=== PATIENT | male | born 1995 | race Caucasian/White ===

== ENCOUNTER 2022-02-01 11:59 | Inpatient (IN) | payer OTHER, MEDICAID, SELFPAY ==
[2022-02-01 12:01] VITALS: BP 134/89; PULSE 81; RESP 14; TEMP 36.7; O2SAT 99; BMI 22.8
--- NOTE | 2022-02-01 12:15 | EX.ED.SAOD ---
HPI History of Present Illness Chief Complaint: Substance Abuse Informant: patient Narrative Narrative: 26-year-old male presents to the emergency department states that he needs inpatient detox for opiates and crack. He states he does not use crack very often but he does use up to a gram of fentanyl per day. He denies IV drug use. He states that he has a total of 5 children and his will not let him see the children until he is sober. He states he was supposed to go to court today but wanted to come here for detox. He notes abdominal cramping diarrhea and chills. He denies any pending legal issues. He states that he is not currently working [employer] [facility] Medical History (Updated 02/01/22 @ 12:[address] Wily Fraser DO) Opiate abuse, continuous Allergy/AdvReac Type Severity Reaction Status Date / Time amoxicillin Allergy Hives Verified 02/01/22 12:01 Social History (Updated 02/01/22 @ 12:[address] Wily Fraser DO) Smoking Status: Current every day smoker substance use type: crack/cocaine and opiates ROS ROS ED Constitutional Constitutional ED: Reports chills; Denies weight loss Eyes Eyes: Denies change in vision or diplopia ENT ENT ED: Denies ear pain, rhinorrhea or sore throat Cardiovascular Cardiovascular: Denies chest pain, orthopnea, palpitations or racing heartbeat Respiratory/Chest Respiratory/Chest: Denies cough, dyspnea or orthopnea Gastrointestinal Gastrointestinal: Reports abdominal pain and diarrhea; Denies nausea or vomiting Genitourinary Genitourinary ED: Denies dysuria, hematuria or urinary frequency Musculoskeletal Musculoskeletal: Reports myalgias; Denies arthralgias Integumentary Denies abscess or rash Neurologic Neurologic: Reports headache(s); Denies weakness Psychiatric Psychiatric: Denies anxiety, depression, suicidal ideation or suicidal thoughts Endocrine Endocrinology: Denies polydipsia, polyphagia or polyuria Allergic/Immunologic Allergic/Immunologic ED: Denies mouth swelling, tongue swelling or urticaria EXAM Physical Exam Const Vital Signs: 02/01/22 12:01 Temperature 98.1 F Temperature Source Temporal Pulse Rate 81 Respiratory Rate 14 Blood Pressure 134/89 H Blood Pressure Mean 104 Pulse Ox 99 Oxygen Delivery Method Room Air Positive well nourished and well developed General Appearance ED: well developed HEENT Reports normocephalic, head/scalp atraumatic and moist mucous membranes Eyes PERRL and EOMs intact bilaterally Neck no lymphadenopathy, supple and no JVD Resp normal respiratory effort and clear to auscultation bilaterally Cardio regular rate, regular rhythm and no murmurs GI normal to inspection, nondistended, normoactive bowel sounds and non-tender Palpation: soft Back/Spine no CVA tenderness and normal ROM Extremity normal to inspection General Extremety ED: Negative for edema General Extremity: Negative for edema Neuro oriented x3 and CN's II-XII intact bilaterally Sensorium / Orientation: alert Motor Exam: strength 5/5 throughout Psych mental status grossly normal Psych Narrative: Patient makes minimal eye contact and give short answers to questions. Mood & Affect: Negative for depressed or tearful Skin no rashes or lesions noted and no wounds Skin Narrative: Piloerection MDM MDM MDM Narrative Medical decision making narrative: Medical screening labs will be obtained. I will speak with the hospitalist regarding admission Discharge Plan Dx/Rx/DC Orders Clinical Impression: Opiate abuse, continuous, Opiate withdrawal Disposition Disposition: Acute Care Hospital [facility]
[2022-02-01 12:29] LABS: Absolute Lymphocyte Count 1.05 X10^3/uL (0.83-4.51); Absolute Neutrophil Count 5.6 X10^3/uL (2.0-7.7); Basophil# 0.03 X10^3/uL; Basophil% 0.4 % (0-1); Eosinophil# 0.01 X10^3/uL; Eosinophils% 0.1 % (0-5); Hematocrit 44.5 % (40-54); Hemoglobin 15.8 g/dL (13.0-16.5); Lymphocyte # 1.05 X10^3/ul (0.83-4.51); Lymphocyte % 14.5 % (19-41); Mean Corp Hgb Conc 35.5 g/dL (32-36); Mean Corpuscular Hgb 29.9 pg (27.0-32.0); Mean Corpuscular Volume 84.3 fL (80-94); Mean Platelet Vol. 10.3 fl (6.2-12.0); Monocyte# 0.51 X10^3/uL; Monocyte% 7.1 % (0-10); NRBC Flagged by Analyzer 0 % (0-5); Neutrophil # 5.61 X10^3/uL (2.7-7.7); Neutrophil % 77.6 % (47-70); Platelet Count 233 K/mm3 (150-450); RBC Distribution Width CV 12.2 % (11.6-14.6); RBC Distribution Width SD 36.8 fl (35.1-43.9); Red Blood Count 5.28 M/mm3 (4.6-6.2); White Blood Count 7.2 K/mm3 (4.4-11.0)
[2022-02-01 12:45] LABS: ALB/GLOB Ratio 1.2 RATIO (0.9-2.4); AST(SGOT) 14 U/L (15-37); Alanine Aminotransfer ALT/SGPT 30 U/L (16-61); Albumin, Serum 4.1 g/dL (3.2-5.0); Alkaline Phosphatase 70 U/L (45-117); Anion Gap 4 (5-15); BUN 8 mg/dL (7-18); BUN/Creat Ratio 8.8 RATIO (10-20); Chloride 101 mmol/L (98-107); Creatinine, Serum 0.91 mg/dL (0.70-1.30); EST Glomerular Filtration Rate 105 mL/min (>60); Est Glom Filt Rate - Afr Amer 127 mL/min (>60); Estimated Creatinine Clearance 116.41 ml/min; Globulin 3.4 g/dL (2.2-4.2); Glucose 115 mg/dL (74-106); Potassium 3.9 mmol/L (3.5-5.1); Protein, Total 7.5 g/dL (6.4-8.2); Sodium Level 138 mmol/L (136-145)
[2022-02-01 12:58] VITALS: BP 131/76; PULSE 84; RESP 18; TEMP 36.6
[2022-02-01 13:13] LABS: Alcohol, Blood (Medical)-Serum < 3.0 mg/dL
--- NOTE | 2022-02-01 13:23 | PCM.HP.STD ---
HPI - General General Date of Admission: 02/01/22 Date of Service: 02/01/22 Chief Complaint: opiate withdrawal HPI Narrative MARY SARAVIA, is a 26 M who presents seeking treatment for opiate withdrawal. Patient snorts fentanyl. Last use was about 24 hours ago. Patient is attempted to get sober to be with his children again. Since his last use, he has been experiencing restlessness, abdominal cramps, yawning. Patient is from [place] and has been involved with the program before. [facility] Medical History Opiate abuse, continuous Home Medications desvenlafaxine succinate 100 mg tablet,extended release 24 hr 1 tab PO DAILY 02/01/22 [History Last Taken Unknown] omeprazole 20 mg capsule,delayed release 1 cap PO DAILY 02/01/22 [History Last Taken Unknown] Allergy/AdvReac Type Severity Reaction Status Date / Time amoxicillin Allergy Hives Verified 02/01/22 12:01 no significant family history Social History Smoking Status: Current every day smoker tobacco type: cigarettes substance use type: crack/cocaine and opiates ROS ROS Narrative All review of systems were negative except as mentioned above in the history of present illness and the other review of systems. Vital Signs Vital Signs Vital Signs: 02/01/22 12:01 Temperature 36.7 C Temperature Source Temporal Pulse Rate 81 Respiratory Rate 14 Blood Pressure 134/89 H Blood Pressure Mean 104 Pulse Ox 99 Oxygen Delivery Method Room Air Weight Weight: 68.1 kg Body Mass Index (BMI) 22.8 Physical Exam Const alert Constitutional Narrative: Uncomfortable. Appropriate. Cold up in a position with a blanket wrapped tightly around him. HEENT normocephalic, head/scalp atraumatic and hearing grossly normal bilaterally Resp normal respiratory effort Cardio regular rate, regular rhythm, S1 normal heart sound and S2 normal heart sound GI normal to inspection, nondistended, normoactive bowel sounds, soft to palpation, non-tender and non-distended Results Lab / Micro Data Result Diagrams: 02/01/22 12:23 02/01/22 12:23 Labs: Laboratory Results - last 24 hr 02/01/22 12:23: WBC 7.2, RBC 5.28, Hgb 15.8, Hct 44.5, MCV 84.3, MCH 29.9, MCHC 35.5, RDW Std Deviation 36.8, RDW Coeff of William 12.2, Plt Count 233, MPV 10.3, Immature Gran % (Auto) 0.300, Neut % (Auto) 77.6 H, Lymph % (Auto) 14.5 L, [place] % (Auto) 7.1, Eos % (Auto) 0.1, Baso % (Auto) 0.4, Absolute Neuts (auto) 5.6, Absolute Lymphs (auto) 1.05, Nucleated RBC % 0 02/01/22 12:23: Sodium 138, Potassium 3.9, Chloride 101, Carbon Dioxide 33.0 H, Anion Gap 4 L, BUN 8, Creatinine 0.91, Estim Creat Clear Calc 116.41, Est GFR (MDRD) Af Amer 127, Est GFR (MDRD) Non-Af 105, BUN/Creatinine Ratio 8.8 L, Glucose 115 H, Calcium 9.0, Total Bilirubin 0.40, AST 14 L, ALT 30, Alkaline Phosphatase 70, Total Protein 7.5, Albumin 4.1, Globulin 3.4, Albumin/Globulin Ratio 1.2 02/01/22 12:23: Ethyl Alcohol < 3.0 Assessment & Plan Assessment/Plan (1) Opiate withdrawal: PLAN: Buprenorphine taper plus another as needed medications to help with other somatic complaints. Addiction medicine to see and help facilitate outpatient program. Patient aware that this is a 3-day program. PLAN: Plan Nicotine patch for nicotine abuse. VTE prophylaxis: Low risk. Not indicated Charges/Coding Visit Charges Inpatient E&M: 25249 Init Hosp L2
[2022-02-01 14:00] VITALS: RESP 18
[2022-02-01 14:52] VITALS: BMI 22.8
[2022-02-01] MEDS: Dicyclomine 10 MG Capsule 20 MG PO (15:32)
[2022-02-01] MEDS: cloNIDine HCl 0.1 MG Tablet PO (15:32)
[2022-02-01] MEDS: Buprenorphine HCl 2 MG TAB.SUBL SL ×2 (15:32→23:23)
[2022-02-01] MEDS: Methocarbamol 750 MG Tablet 1500 MG PO ×2 (15:32→23:23)
[2022-02-01] MEDS: traZODone 100 MG Tablet PO (19:57)
[2022-02-01] MEDS: hydrOXYzine PAM 25 MG Capsule 50 MG PO (19:57)
[2022-02-01] MEDS: Ibuprofen 600 MG Tablet PO (19:57)
[2022-02-01 20:06] VITALS: BP 112/74; PULSE 60; RESP 16; TEMP 37.3; O2SAT 100
[2022-02-01] MEDS: Loperamide 2 MG Capsule PO (23:23)
[2022-02-02] MEDS: Buprenorphine HCl 2 MG TAB.SUBL SL ×2 (06:10→16:59)
[2022-02-02 06:14] VITALS: BP 113/77; PULSE 55; RESP 16; TEMP 37.1; O2SAT 99
--- NOTE | 2022-02-02 07:15 | PCM.PN.HOSP ---
Subjective Subjective Feels much better today. Objective Data Objective Data Vital Signs: Vital Signs Temp Pulse Resp BP Pulse Ox O2 Del Method 37.1 C 55 L 16 113/77 99 Room Air 02/02/22 06:14 02/02/22 06:14 02/02/22 06:14 02/02/22 06:14 02/02/22 06:14 02/02/22 06:14 Oxygen Delivery Method Room Air Weight: 68.039 kg Body Mass Index (BMI) 22.8 Lab / Micro Data Result Diagrams: 02/01/22 12:23 02/01/22 12:23 Labs: Laboratory Results - last 24 hr 02/01/22 12:23: WBC 7.2, RBC 5.28, Hgb 15.8, Hct 44.5, MCV 84.3, MCH 29.9, MCHC 35.5, RDW Std Deviation 36.8, RDW Coeff of William 12.2, Plt Count 233, MPV 10.3, Immature Gran % (Auto) 0.300, Neut % (Auto) 77.6 H, Lymph % (Auto) 14.5 L, [place] % (Auto) 7.1, Eos % (Auto) 0.1, Baso % (Auto) 0.4, Absolute Neuts (auto) 5.6, Absolute Lymphs (auto) 1.05, Nucleated RBC % 0 02/01/22 12:23: Sodium 138, Potassium 3.9, Chloride 101, Carbon Dioxide 33.0 H, Anion Gap 4 L, BUN 8, Creatinine 0.91, Estim Creat Clear Calc 116.41, Est GFR (MDRD) Af Amer 127, Est GFR (MDRD) Non-Af 105, BUN/Creatinine Ratio 8.8 L, Glucose 115 H, Calcium 9.0, Total Bilirubin 0.40, AST 14 L, ALT 30, Alkaline Phosphatase 70, Total Protein 7.5, Albumin 4.1, Globulin 3.4, Albumin/Globulin Ratio 1.2 02/01/22 12:23: Ethyl Alcohol < 3.0 Physical Exam Const alert and oriented x3 Constitutional Narrative: Appears much more comfortable today. Neuro Sensorium / Orientation: awake and alert Psych affect normal Assessment & Plan Assessment/Plan (1) Opiate withdrawal: PLAN: Buprenorphine taper plus another as needed medications to help with other somatic complaints. Addiction medicine to see and help facilitate outpatient program. Patient aware that this is a 3-day program. PLAN: Plan Nicotine patch for nicotine abuse. Polysubstance abuse: pt smokes crack occasionally complicates long-term recovery VTE prophylaxis: Low risk. Not indicated Charges/Coding Visit Charges Inpatient E&M: 44629 Subs Hosp L1
[2022-02-02 09:36] VITALS: BP 113/68; PULSE 57; RESP 18; TEMP 36.9; O2SAT 100
[2022-02-02] MEDS: Venlafaxine XR 37.5 MG Capsule PO (09:40)
[2022-02-02] MEDS: Pantoprazole Sodium 20 MG Tablet PO (09:42)
[2022-02-02] MEDS: Ibuprofen 600 MG Tablet PO (09:45)
[2022-02-02] MEDS: hydrOXYzine PAM 25 MG Capsule 50 MG PO (09:46)
[2022-02-02 14:55] VITALS: BP 129/66; PULSE 62; RESP 18; TEMP 37; O2SAT 100
--- NOTE | 2022-02-02 15:26 | NURSING ---
This RN aware of VS taken approx 30min ago by Lana BAKER
--- NOTE | 2022-02-02 16:04 | ADDICTION ---
This writer technical publications met with PT to conduct ASAM, MSE, AUDIT, DUDIT assessments and to plan for d/c. PT A+Ox4 and participated actively. All assessments completed and placed in PT's chart. PT plans to f/u with follow-up treatment services, however this worker is currently working on placement. Will note once placement is found.
--- NOTE | 2022-02-02 18:53 | PCM.DC.SUM ---
Providers Date of Admission: 02/01/22 Primary Care Physician: ABE Timmons Reason For Visit: OPIATE WITHDRAWAL Diagnosis Discharge Diagnosis (1) Opiate withdrawal: Status: Acute Code(s): F11.93 - Opioid use, unspecified with withdrawal Plan: Buprenorphine taper plus another as needed medications to help with other somatic complaints. Addiction medicine to see and help facilitate outpatient program. Patient aware that this is a 3-day program. Plan Nicotine patch for nicotine abuse. Polysubstance abuse: pt smokes crack occasionally complicates long-term recovery VTE prophylaxis: Low risk. Not indicated Medications at Discharge Home Medications desvenlafaxine succinate 100 mg tablet,extended release 24 hr 1 tab PO DAILY 02/01/22 omeprazole 20 mg capsule,delayed release 1 cap PO DAILY 02/01/22 Hospital Course Operations None Procedures None Summary of Care Provided Minutes Spent on Discharge: 24 Hospital Course: Is a 18-year-old male who presents seeing treatment for opiate withdrawal. Patient was started on buprenorphine. Patient had not used for about 24 hours prior to admission. Patient was better after receiving buprenorphine. Despite that, the patient left AGAINST MEDICAL ADVICE. Weight / BMI Weight Weight: 68.039 kg Body Mass Index (BMI) 22.8 ABG / Lab / Microbiology Data Result Diagrams: 02/01/22 12:23 02/01/22 12:23 Meaningful Use Info Meaningful Use Diagnoses (Choose all that apply): None applicable Discharge Plan Admission Admit Date/Time: 02/01/22 13:21 Attending Provider: Flo Hudson Primary Care Provider: Kendra Ruiz NP Discharge Orders/Prescriptions Prescriptions: No Action omeprazole 20 mg capsule,delayed release(DR/EC) 1 cap PO DAILY Label Comments: take 1 capsule by mouth once daily desvenlafaxine succinate 100 mg tablet extended release 24 hr 1 tab PO DAILY Label Comments: take 1 tablet by mouth once daily Referrals / Follow Up: Kendra Ruiz NP, [facility] [Primary Care Provider] - Disposition Disposition (needs filled in before D/C Order can be placed): Against Medical Advice Charges/Coding Visit Charges Inpatient E&M: 21373 Disch Hosp
== END 2022-02-02 18:22 | disposition left against medical advice (07) | DRG 894 ==
LOC: ED 12:31 → MS3 13:41
PROVIDERS: Emergency Provider Emergency Medicine; PCP Internal Medicine
DX: F11.23 Opioid dependence with withdrawal (principal); F14.10 Cocaine abuse, uncomplicated; F17.210 Nicotine dependence, cigarettes, uncomplicated
CPT/HCPCS: 80053; 82077; 85025; 99283; 99406